=== PATIENT | female | born 1940 | race Caucasian/White ===

== ENCOUNTER 2022-09-07 13:45 | Outpatient (CLI) | payer MEDICARE | END 2022-09-07 13:46 | disposition home or self-care (01) | LOC: CSHCP 13:45 | PROVIDERS: ATTEND Internal Medicine | DX: R91.8 Other nonspecific abnormal finding of lung field (principal); J44.9 Chronic obstructive pulmonary disease, unspecified | CPT/HCPCS: 94060; 94726; 94729; 94760 ==